=== PATIENT | female | born 1970 | race Caucasian/White ===

== ENCOUNTER 2016-06-12 19:05 | Emergency (ER) | payer OTHER ==
[~2016-06-12] VITALS: Ht 157.5 cm; Wt 70.5 kg
[~2016-06-12 19:05] MED LIST: AZIT250T6 PO; BACTDS PO; LOPE2CAP PO; UDROBDM PO; ZOF8 PO
[2016-06-12 19:08] VITALS: Ht 157.5 cm; Wt 70.5 kg
[2016-06-12] MEDS ORDERED: IBUP-1542 PO (19:41)
[2016-06-12] MEDS ORDERED: IBUPROFEN 800 MG TAB PO ONE (20:00)
--- NOTE | 2016-06-12 21:34 | ERD ---
ER Documentation Chief Complaint Date/Time DATE: 06/12/16 TIME: 21:31 Chief Complaint left hand pain sustained while lifting her bicycle HPI Patient is a 45-year-old female with no medical problems who presents with left hand and forearm pain. She said that she was having pain with lifting things. She says that she has a bump to her left wrist that is been there for years. She has pain over the past 2 weeks. She thinks it was from lifting her bike multiple times. She has had no treatment as of yet. She has no trauma. She does not currently have a primary doctor. She is right-handed. ROS All systems reviewed and are negative except as per history of present illness. Medications Home Meds Active Scripts Ibuprofen* (Motrin*) 600 Mg Tab, 600 MG PO Q8, #30 TAB Prov:FACUNDO LION MD 06/12/16 Guaifenesin-Dextromethorphan* (Robitussin* DM) 100MG/10MG/5ML Syrup, 10 ML PO Q4H Y for COUGH for 5 Days, ML Prov:OWEN GRIMES NP 04/13/15 Azithromycin* (Azithromycin*) 250 Mg Tablet, 250 MG PO DAILY, #4 TAB Prov:OWEN GRIMES NP 04/13/15 Sulfamethoxazole-Trimethoprim* (Bactrim* DS) 800-160 Mg Tab, 1 TAB PO BID for 7 Days, TAB Prov:JORGE NUR PA-C 12/31/14 Loperamide Hcl* (Imodium*) 2 Mg Capsule, 2 MG PO .AFTER EA LOOSE BM Y for DIARRHEA, #10 TAB Prov:ZOE DEWITT PA-C 09/27/14 Ondansetron Hcl* (Zofran* ODT) 8 mg -ODT Tab.disper, 8 MG PO Q6 Y for NAUSEA AND /OR VOMITING, #14 TAB Prov:ZOE DEWITT PA-C 09/27/14 Allergies Allergies: Coded Allergies: acetaminophen (Verified Allergy, Unknown, 12/30/14) hydrocodone (Verified Allergy, Unknown, 12/30/14) PMhx/Soc Medical and Surgical Hx: pt denies Medical Hx History of Surgery: Yes (pt had nose surgery 15 years ago) Anesthesia Reaction: No Hx Neurological Disorder: No Hx Respiratory Disorders: Yes Hx Cardiac Disorders: No Hx Psychiatric Problems: No Hx Miscellaneous Medical Probl: No Hx Alcohol Use: No Hx Substance Use: No Hx Tobacco Use: No Smoking Status: Never smoker FmHx Family History: No diabetes Physical Exam Vitals Vital Signs Date Time Temp Pulse Resp B/P Pulse Ox O2 Delivery O2 Flow Rate FiO2 06/12/16 19:08 97.6 90 20 130/82 98 Physical Exam Const: No acute distress Head: Atraumatic Eyes: Normal Conjunctiva ENT: Normal External Ears, Nose and Mouth. Neck: Full range of motion..~ No meningismus. Resp: Clear to auscultation bilaterally Cardio: Regular rate and rhythm, no murmurs Abd: Soft, non tender, non distended. Normal bowel sounds Skin: No petechiae or rashes Back: No midline or flank tenderness Ext: Patient has a 1 x 1 cm cystic structure on the wrist on the palmar surface consistent with a ganglion cyst, full range of motion Neur: Awake and alert Psych: Normal Mood and Affect Results 24 hrs Current Medications Medications (Trade) Dose Ordered Sig/Sintia Route PRN Reason Start Time Stop Time Status Last Admin Dose Admin Ibuprofen (Motrin) 800 mg ONCE ONCE PO 06/12/16 20:00 06/12/16 20:01 DC 06/12/16 19:51 Procedures/MDM Ganglion cyst removal: I used pressure was able to pop the ganglion cyst to the left wrist. The patient had mild discomfort but felt better after the procedure. Smoking Cessation Therapy: Pt. was lectured for greater than 3 minutes on the health risks of continued smoking and the benefits of cessation. Patient is a 45-year-old female who presents with left wrist pain. She had no trauma and I do not feel that she requires x-rays at this time. The patient had a ganglion cyst treated in the emergency department by myself. She feels better. She will be given ibuprofen. She will be given a prescription for ibuprofen. She can return sooner for any worsening symptoms. Departure Diagnosis: Primary Impression: Ganglion cyst Additional Impression: Pain of hand Laterality: left Qualified Code: M79.642 - Pain of left hand Condition: Fair Patient Instructions: Ganglion Cyst: Hand Referrals: [facility] YOU HAVE RECEIVED A MEDICAL SCREENING EXAM AND THE RESULTS INDICATE THAT YOU DO NOT HAVE A CONDITION THAT REQUIRES URGENT TREATMENT IN THE EMERGENCY DEPARTMENT. FURTHER EVALUATION AND TREATMENT OF YOUR CONDITION CAN WAIT UNTIL YOU ARE SEEN IN YOUR DOCTORS OFFICE WITHIN THE NEXT 1-2 DAYS. IT IS YOUR RESPONSIBILITY TO MAKE AN APPOINTMENT FOR FOLOW-UP CARE. IF YOU HAVE A PRIMARY DOCTOR --you should call your primary doctor and schedule an appointment IF YOU DO NOT HAVE A PRIMARY DOCTOR YOU CAN CALL OUR PHYSICIAN REFERRAL HOTLINE AT IF YOU CAN NOT AFFORD TO SEE A PHYSICIAN YOU CAN CHOSE FROM THE FOLLOWING [facility] [email or web address] [facility] [email or web address] [facility] [address] [facility] [address] [facility]. [facility] [address] [facility]. [facility]. [address] Additional Instructions: Call your primary care doctor TOMORROW for an appointment during the next 1-2 days.See the doctor sooner or return here if your condition worsens before your appointment time. FACUNDO LION MD Jun 12, 2016 21:34
== END 2016-06-12 23:41 | disposition home or self-care (01) ==
LOC: FTE 19:05
DX: M67.442 Ganglion, left hand (principal)
CPT/HCPCS: Z7502; Z7610; 99283